=== PATIENT | male | born 1960 | race Caucasian/White ===

== ENCOUNTER 2017-04-25 13:32 | Inpatient (IN) | payer OTHER, SELFPAY ==
[2017-04-25] MEDS ORDERED: Succinylcholine Chloride 20 MG/ML 10 ml SYRINGE FS ONE (14:00)
[2017-04-25] MEDS ORDERED: Heparin 5,000 UNITS/ML VIAL ONE (14:10)
[2017-04-25] MEDS ORDERED: Amiodarone HCl 450 MG, Admixture Fee 1 EACH in Dextrose 5% in Water 250 ML IVPB SCH ×3 (14:15)
[2017-04-25 14:16] LABS: Mean Platelet Volume 7.8 fL (7.4-10.4); Red Blood Cell (RBC) Count 4.69 mill/uL (4.70-6.10); White Blood Cell (WBC) Count 21.4 thou/uL (4.8-10.8)
[2017-04-25 14:33] LABS: ALT (SGPT) 18 U/L (8-55); AST (SGOT) 21 U/L (5-34); Alkaline Phosphatase 85 U/L (40-150); Anion Gap 15 mmol/L (10-20); BUN (Urea Nitrogen) 10 mg/dL (8.4-25.7); Bilirubin, Total 0.7 mg/dL (0.2-1.2); CK (CPK) 117 U/L (30-200); Calc. Creatinine Clearance 0 mL/min (70-130); Calcium 9.8 mg/dL (7.8-10.44); Carbon Dioxide 24 mmol/L (22-29); Chloride 101 mmol/L (98-107); Estimated GFR-MDRD 79; Globulin 3.4 g/dL (2.4-3.5); Lipase 46 U/L (8-78); Protein, Total 7.4 g/dL (6.0-8.3)
[2017-04-25 14:35] LABS: Band 1 % (5-11); Neutrophil 43 % (42-75)
[2017-04-25 14:40] LABS: PTT 27.6 SEC (22.9-36.1); Prothrombin Time 13.1 SEC (12.0-14.7)
[2017-04-25 14:43] LABS: Troponin I 1.605 ng/mL (< 0.028)
[2017-04-25] MEDS ORDERED: Midazolam HCl 2 mg/2 ml Vial ONE (14:43)
[2017-04-25] MEDS ORDERED: Heparin 10,000 UNITS/1 ML VIAL ONE (14:56)
[2017-04-25] MEDS ORDERED: Nitroglycerin 100MG/250ML BOT 250 ML ONE (14:56)
[2017-04-25] MEDS ORDERED: Fentanyl 100 MCG/2 ML VIAL ONE (15:01)
--- NOTE | 2017-04-25 15:19 | RAD ---
1 VIEW CHEST: Date: 04/25/17 HISTORY: Chest pain. COMPARISON: None. FINDINGS: Normal cardiac silhouette. Pulmonary vessels are slightly prominent. Costophrenic angles are clear. No mas. No consolidation or pneumothorax. No osseous abnormalities. IMPRESSION: Mildly prominent pulmonary vessels. Correlate for volume overload. POS: [facility]
[2017-04-25] MEDS ORDERED: Iopamidol 370 76% 100 ML VIAL ONE (15:52)
[2017-04-25] MEDS ORDERED: Acetaminophen/Codeine 30-300mg Tablet PO PRN ×2 (16:18)
[2017-04-25] MEDS ORDERED: traMADol HCl 50 MG TAB PO PRN (16:18)
[2017-04-25] MEDS ORDERED: Nitroglycerin 0.4 MG TAB (25 Tab Bottle) SL PRN (16:18)
[2017-04-25] MEDS ORDERED: Sodium Chloride 0.9% 200 ML IV PRN (16:30)
[2017-04-25] MEDS ORDERED: Magnesium 2 GM/NS 0.9% 50 ML 2 GM in Premix Bag 1 BAG IVPB SCH (17:00)
[2017-04-25] MEDS ORDERED: Sodium Chloride 0.9% 1,000 ML IV SCH (17:00)
[2017-04-25] MEDS: Carvedilol 6.25 MG TAB PO SCH (17:01)
[2017-04-25] MEDS: Atorvastatin Calcium 40 MG TAB PO SCH (20:17)
[2017-04-25] MEDS: Lisinopril 2.5 MG TAB PO SCH (20:17)
[2017-04-25 20:32] LABS: Troponin I 2.866 ng/mL (< 0.028)
--- NOTE | 2017-04-25 22:44 | HP ---
DATE OF CONSULTATION: 04/25/2017. REASON FOR ADMISSION: Ventricular fibrillation, possible acute myocardial infarction. HISTORY OF PRESENT ILLNESS: Mr. Edis Whitmore is a 57-year-old man. He is up here visiting from [facility] home. He was at work. He started having some discomfort in his chest. He thought it was indiges tion. It got better every time he belched. His boss convinced him to go to the emergency room for evaluation. While the patient is being evaluated in the emergency room, the patient had ventricular fibrillation and was successfully defibrillated. He is currently feeling better but still had some chest discomfort. PAST MEDICAL HISTORY: The patient took blood pressure medicine, but he did not know which one. He did not take any cholesterol medicines. Risk factors negative for family history at a young age. N egative for smoking. REVIEW OF SYSTEMS: Constitutional: Negative for weakness and fatigue prior to this. No weight gai n or loss. Vision: No changes. Cardiovascular: As outlined above, moderate chest pain. Gastroin testinal: Positive for belching. Genitourinary: No burning with urination. Musculoskeletal: No unusual joint pains. Skin: No rashes. PAST MEDICAL HISTORY: History positive for GERD. PAST SURGICAL HISTORY: Left shoulder repair. ALLERGIES: PENICILLIN. SOCIAL HISTORY: Positive for smoking. MEDICATIONS: Listed as: 1. Metoprolol 100 mg a day, but he did not take it today. 2. Hydrochlorothiazide 25 mg a day. PHYSICAL EXAMINATION: VITAL SIGNS: Initial blood pressure was high 182/114 with a pulse of 92, subsequently 128/93. HEENT: Eyes: Sclerae anicteric. Mouth: Mucous membranes are moist. NECK: Supple, no lymphadenopathy. LUNGS: Clear. No wheezing, rales, or rhonchi. CARDIAC: Normal S1, normal S2. There is no murmur, rub, or gallop. ABDOMEN: Soft, nontender EXTREMITIES: No clubbing, cyanosis, or edema. SKIN: Warm and dry. MOOD AND AFFECT: The patient was apprehensive. LABORATORY AND X-RAY FINDINGS: EKG sinus rhythm. Slight ST elevation in V6, very borderline findin gs. The patient was having ongoing chest pain. ASSESSMENT: 1. Ventricular fibrillation. 2. Probable acute myocardial infarction, although the EKG was not conclusive. 3. History of hypertension. 4. History of smoking. 5. Unknown cholesterol status. PLAN: Discussed emergency cardiac catheterization which I advised this gentleman to. Discussed ri sks of stroke, heart attack, IODINE allergy, interfering with the blood supply to the leg or kidney, stent thrombosis, stent restenosis. The patient understood and wishes to proceed. Subsequently, the patient was taken to the cardiac catheterization lab and surprisingly, was not fou nd to have obstructive coronary artery disease or at least only very small obstructive branches with an ejection fraction of 25% with akinesis of the mid and distal anterior wall apex, distal inferior wall and severe hypokinesis of the mid inferior wall with hyperdynamic proximal areas compatible wi th Takotsubo cardiomyopathy. The patient will be treated with NAIDA inhibitors and beta-blockers. Smoking cessation is advised and lipid-lowering therapy.
[2017-04-26] MEDS: Aspirin 81 mg Enteric Coated Tablet PO SCH (09:06)
[2017-04-26] MEDS: Carvedilol 6.25 MG TAB PO SCH ×2 (09:06→16:31)
[2017-04-26] MEDS ORDERED: Lisinopril 2.5 MG TAB PO SCH (10:00)
[2017-04-26] MEDS ORDERED: Clopidogrel Bisulfate 300 MG TAB PO SCH (10:15)
[2017-04-26] MEDS ORDERED: Lisinopril 5 MG TAB PO SCH (10:30)
[2017-04-26] MEDS: Lisinopril 2.5 MG TAB PO SCH (10:53)
--- NOTE | 2017-04-26 12:33 | PRG ---
DATE OF SERVICE: 04/26/2017 HISTORY: Mr. Whitmore is feeling well today. No chest pain or pressure. No further arrhythmias. PHYSICAL EXAMINATION: VITAL SIGNS: Blood pressure is 128/78, pulse 64 regular. LUNGS: Clear. CARDIAC: Normal S1 and S2. ABDOMEN: Soft, nontender. EXTREMITIES: There is no edema. PERTINENT LABORATORY: The peak troponin is 8.52. LDL cholesterol is 102. Glucose 132. EKG, there is now T-wave inversions in lead I, aVL, V5 and V6. ASSESSMENT: 1. Status post myocardial infarction, appears to be Takotsubo's pattern cardiomyopathy. 2. Hypercholesterolemia, mild. 3. Smoking. recommend cessation. PLAN: 1. Increase NAIDA inhibitors. 2. Transfer to telemetry. 3. We will add dual antiplatelet drugs for now. 4. NAIDA inhibitors and beta blockers. 5. LifeVest before discharge.
[2017-04-26] MEDS: Atorvastatin Calcium 40 MG TAB PO SCH (19:56)
[2017-04-26] MEDS: Lisinopril 5 MG TAB PO SCH (23:40)
[2017-04-27] MEDS: Clopidogrel Bisulfate 75 MG TAB PO SCH (08:59)
[2017-04-27] MEDS: Carvedilol 6.25 MG TAB PO SCH ×2 (08:59→16:47)
[2017-04-27] MEDS: Aspirin 81 mg Enteric Coated Tablet PO SCH (08:59)
[2017-04-27] MEDS: Lisinopril 5 MG TAB PO SCH ×2 (09:00→20:12)
--- NOTE | 2017-04-27 11:40 | EKG ---
Test Reason : AM Blood Pressure : / mmHG Vent. Rate : 067 BPM Atrial Rate : 067 BPM P-R Int : 164 ms QRS Dur : 086 ms QT Int : 424 ms P-R-T Axes : 050 -20 100 degrees QTc Int : 448 ms Normal sinus rhythm T wave abnormality, consider lateral ischemia Abnormal ECG No previous ECGs available Confirmed by DR. Rowan GRANT ([id number]) on 04/27/2017 11:40:26 AM Referred By: Kishan MARTINEZ Confirmed By:DR. Rowan GRANT
--- NOTE | 2017-04-27 12:03 | PRG ---
DATE OF SERVICE: 04/27/2017 HISTORY: Mr. Whitmore is feeling well today. He has been up walking in the halls. He is asymptomatic . PHYSICAL EXAMINATION: VITAL SIGNS: Blood pressure 133/87, pulse is 60, it is regular. LUNGS: Clear. CARDIAC: Normal S1 and S2. ABDOMEN: Soft, nontender. EXTREMITIES: There is no edema. LABORATORY: Reviewing the laboratory, the peak troponin was 8.5, LDL cholesterol is 102. ASSESSMENT: 1. Status post ventricular fibrillation. 2. Clinical pattern on the ventriculogram of Takasubo's cardiomyopathy, does not fit the LAD distri bution. 3. Previous hypertension. 4. Increased white blood cell count. PLAN: 1. Continue NAIDA inhibitors and beta blockers. 2. Aspirin. I will go ahead and as precaution give him Plavix for 30 days. 3. Will fit with a [employer] LifeVest. 4. Ask Dr. Martínez to come by and see the patient as well. 5. Hopefully home tomorrow.
--- NOTE | 2017-04-27 18:41 | CON ---
ELECTROPHYSIOLOGIC CONSULTATION REPORT DATE OF CONSULTATION: 04/27/2017 REFERRING PHYSICIAN: Dr. Sebastian Troncoso. I am seeing Mr. Whitmore at our [facility] telemetry floor as an electrophysiology learning and development consultant. His problems are: 1. Ventricular fibrillation arrest in the setting of acute Takotsubo cardiomyopathy. A. Initial chest pains associated with high lateral ST elevation myocardial infarction with peak tr oponin of 8.5. B. Ventricular fibrillation developed in the ER witnessed and promptly treated. C. Left heart catheterization demonstrates patent coronary arteries except for a 70% to 80%, margin al side branch had 70% to 80% disease. D. Severely reduced left ventricular systolic function area of 25% with apical ballooning. 2. Coronary artery risk factors. A. History of smoking. B. History of hypertension. 3. History of gastroesophageal reflux disease. ALLERGIES: PENICILLIN. MEDICATIONS: At home include metoprolol 100 mg a day and hydrochlorothiazide 25 mg a day. SUBJECTIVE: Mr. Whitmore is here with initial presenting symptoms of chest tightness lasting about 15 minutes, but recurrent. At first, he told it was a reflux disease. It got better with belching, bu t again recurred after that. He was now driven to the ER by his boss from his work site about 45 mi nutes away. In the ER, he passed out, again his IV started. VF was documented and he was defibrill ated. Since then, he remained arrhythmia free except for maybe a 3-beat nonsustained ventricular ru n on the floor yesterday. REVIEW OF SYSTEMS: Otherwise unremarkable with no history of PND, orthopnea, lower extremity edema. He did have an episode of dizziness about a week ago where he was helping some friends with some h eavy lifting, but no other episodes of dizziness or near syncope noted in the past. No chest pains either. No stroke-like symptoms, no neurological deficits, no fever, chills or cough, no bleeding i ssues. Rest of the 12-point review of systems is unremarkable. PAST MEDICAL HISTORY: As above. PAST SURGICAL HISTORY: Significant for left shoulder repair. FAMILY HISTORY: Noncontributory. SOCIAL HISTORY: The patient is a smoker. Drinks alcohol only socially. 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 Denies drug use. OBJECTIVE DATA: VITAL SIGNS: Currently, blood pressure is 122/77, heart rate 66, respiratory rate is 18, temperatur e 97.7 degrees Fahrenheit and blood pressure on presentation 118/77. GENERAL: This is an alert and oriented man in no apparent distress. NECK: Supple. Jugular veins are not distended. CHEST: Coarse without crackles. CARDIAC: Heart sounds are regular to rate and rhythm. No murmur or gallop is appreciated. The PMI is nonpalpable. ABDOMEN: Benign. Bowel sounds positive. EXTREMITIES: Lower extremities without edema, clubbing or cyanosis. Pulses are adequate. NEUROLOGIC: Patient is nonfocal. MUSCULOSKELETAL: No joint swelling or deformities. SKIN: Without rash. PSYCHIATRIC: Evaluation appears to have a normal affect and mood. DATABASE: The EKGs reviewed. Initial rhythm strips does reveal ventricular fibrillation with promp t termination defibrillation. EKG on 04/25, 13:36, reveals a fairly normal appearing EKG with T wav e changes laterally. Subsequent EKG does reveal some slight ST elevation in the lateral leads, also some depression in V2 and V3 is noted and inferior ST depressions are seen as well. Telemetry stri ps does reveal a run of monomorphic ventricular tachycardia about 100 beats per minute, which was as ymptomatic for duration about 5 seconds. LABORATORY DATA AND X-RAY FINDINGS: The troponin I is 1.605 followed by 2.866 and then finally 8.52 0 consecutively. Initial CK-MB 3.4 peaking at 46.1. Electrolytes in normal range. Sodium 135 and 128. Total cholesterol 173, LDL is 102 and HDL is 34. INR is in normal range. Chest x-ray shows m ild prominence of pulmonary vessels, possible fluid overload. ASSESSMENT AND PLAN: Mr. Whitmore is a 57-year-old man with history of smoking, gastroesophageal reflu x disease and hypertension who is presenting with chest pains. It could be consistent with acute my ocardial ischemia and indeed his EKG also showed lateral ST elevation. 1. Left heart catheterization does not demonstrate significant occlusion and eventually based on e LV hypokinesis pattern, Takotsubo cardiomyopathy was diagnosed. The left ventricular ejection fra ction is 25%. Unusual for this syndrome. He does not report any significant emotional distress, bu t just normal events of his working day. My plan would: 1. Although he had a true ventricular fibrillation arrest, it seemed to be related to his acute cayden cardial ischemia. I agree with the diagnosis of Takotsubo syndrome and his left systolic function i s likely to improve with standard heart failure therapy. Along with that, likely his arrhythmia ris k also will reduce, but may not completely eliminate. He should be evaluated for repeated echocardi ogram about 40 days for consultation ICD therapy if left ventricular ejection fraction remains less than 35%. In the interim, his risk is still significant, therefore, a LifeVest use would be very re asonable. Depending on the data from the LifeVest and his left ventricular ejection fraction, the I CD will not be recommended after his 40-day echocardiogram. 2. I also strongly emphasized continue beta-taya use and smoking cessation as well as avoiding h igh stressful situations. 3. Standard heart failure therapy as per Dr. Troncoso. 4. Standard coronary artery disease treatment. Continue aspirin and Plavix as are initiated. The patient is from [place], but I gave him an option to follow up in our clinic if he feels that necessary.
[2017-04-27] MEDS: Atorvastatin Calcium 40 MG TAB PO SCH (20:12)
[2017-04-28 05:54] LABS: Anion Gap 11 mmol/L (10-20); BUN (Urea Nitrogen) 14 mg/dL (8.4-25.7); Calc. Creatinine Clearance 118 mL/min (70-130); Calcium 9.3 mg/dL (7.8-10.44); Carbon Dioxide 28 mmol/L (22-29); Chloride 101 mmol/L (98-107); Estimated GFR-MDRD 82
[2017-04-28 06:15] LABS: #Basophils 0.1 thou/uL (0.0-0.2); #Eosinphils 0.4 thou/uL (0.0-0.7); #Lymphocytes 3.7 thou/uL (1.20-3.40); #Monocytes 0.8 thou/uL (0.11-0.59); #Neutrophils 7.9 thou/uL (1.40-6.50); %Basophils 0.7 % (0.0-1.0); %Eosinophils 2.8 % (0.0-10.0); %Monocytes 6.2 % (0.0-10.0); Hematocrit 44.7 % (42.0-52.0); Macrocytosis SLIGHT = 6-15 cells (100X) (0-5/hpf); Mean Platelet Volume 8.2 fL (7.4-10.4); Red Blood Cell (RBC) Count 4.22 mill/uL (4.70-6.10); White Blood Cell (WBC) Count 12.8 thou/uL (4.8-10.8)
[2017-04-28 06:20] VITALS: BMI 47.7
[2017-04-28] MEDS: Aspirin 81 mg Enteric Coated Tablet PO SCH (09:34)
[2017-04-28] MEDS: Lisinopril 5 MG TAB PO SCH (09:35)
[2017-04-28] MEDS: Clopidogrel Bisulfate 75 MG TAB PO SCH (09:35)
[2017-04-28] MEDS ORDERED: Carvedilol 6.25 MG TAB PO SCH ×2 (09:45→17:00)
[2017-04-28 12:17] VITALS: TEMP 97.9
--- NOTE | 2017-04-28 13:50 | DIS ---
DATE OF ADMISSION: 04/25/2017 DATE OF DISCHARGE: 04/28/2017 FINAL DIAGNOSES: 1. Ventricular fibrillation. 2. Takotsubo syndrome. 3. Mild nonobstructive coronary disease. 4. History of hypertension. 5. History of smoking. MEDICATIONS AT THE TIME OF DISCHARGE: 1. Carvedilol 12.5 mg twice a day. Dose to be increased later if tolerated. 2. Lisinopril 5 mg twice a day. 3. Aspirin 81 mg a day. 4. Plavix 75 mg a day for 30 days only. DISCHARGE INSTRUCTIONS: 1. He will have a LifeVest in place. 2. The patient should undergo a repeat echocardiography as an outpatient. According to electrophys iologist, it would be reasonably that in 40 days if his ejection fraction is still diminished, then a permanent implantable defibrillator would be appropriate. Please see admission note for full details. Briefly, Mr. Whitmore is a 57-year-old gentleman. He pres ented to the hospital with chest pain. His initial EKG was relatively unremarkable, but the patient probably had ventricular fibrillation and was successfully defibrillated. He was taken to the medical laboratory technician on an emergency basis and was found to have no obstructive coronary disease in any major epicar dial vessels. There were some small branches, which appeared to be previously occluded, but the lar ge vessels were patent with good flow. The anterior wall apex, distal inferior wall and mid inferio r wall were akinetic with hyperdynamic proximal segment, which did not fit any vascular distribution , but looked more compatible with Takotsubo syndrome. They have recommended that patient have a LifeVest to be treated medically. Dr. Martínez saw the patien t and said in 40 days, it would be reasonable to place a defibrillator if ejection fraction remains diminished. Ejection fraction is 25% at the time of the catheterization on the . The patient wishes to have this follow up done in his home town. We offered to have a follow up here, but he prefers to do it in his hometown. The patient will be tentatively discharged this afternoon.
[2017-04-28 14:49] VITALS: BP 127/73
[2017-04-28] MEDS: Atorvastatin Calcium 40 MG TAB PO SCH (14:50)
== END 2017-04-28 15:00 | disposition home or self-care (01) | DRG 287 ==
LOC: ERS 13:32 → CCL 14:56 → CCU 15:53 → 2NO 04-26 11:44
PROVIDERS: ADMIT Internal Medicine Cardiovascular Disease; ATTEND Internal Medicine Cardiovascular Disease
PROC: 4A023N7 Measurement of Cardiac Sampling and Pressure, Left Heart, Percutaneous Approach (ICD-10-PCS; principal; 2017-04-25)
PROC: B2111ZZ Fluoroscopy of Multiple Coronary Arteries using Low Osmolar Contrast (ICD-10-PCS; 2017-04-25)
PROC: B2151ZZ Fluoroscopy of Left Heart using Low Osmolar Contrast (ICD-10-PCS; 2017-04-25)
PROC: 5A2204Z Restoration of Cardiac Rhythm, Single (ICD-10-PCS; 2017-04-25)
DX: I49.01 Ventricular fibrillation (principal); I51.81 Takotsubo syndrome; I10 Essential (primary) hypertension; I25.10 Atherosclerotic heart disease of native coronary artery without angina pectoris; F17.210 Nicotine dependence, cigarettes, uncomplicated; E78.5 Hyperlipidemia, unspecified
CPT/HCPCS: 36415; 71010; 76942; 80048; 80053; 80061; 82553; 83690; 84484; 85025; 85610; 85730; 93005; 93010; 93458; 93798; 96374; 96375; 99152; 99153; 99406; C1769; J0282; J1644; J2250; J3010; J3475; J7070